=== PATIENT | male | born 1980 | race Caucasian/White ===

== ENCOUNTER 2018-10-19 12:33 | Inpatient (IN) | payer SELFPAY ==
[2018-10-19] VITALS (11 sets, daily range): BP systolic 110–166; BP diastolic 57–82; PULSE 70–80; RESP 12–25; TEMP 35.6–37.1; O2SAT 94–99
--- NOTE | 2018-10-19 13:01 | W.ED.GENAD ---
Discharge Plan Disposition Patient Disposition: [facility] INPATIENT Condition: Stable Discharge Details Chief Complaint: Abd Prob Clinical Impression: Acute appendicitis, Acute hypokalemia, Abdominal pain, acute, right lower quadrant Primary Care Provider: Shahzad Zhou ED Provider: Ady Tan Home Meds and New Rx's Prescriptions: No Action atenolol 25 mg Tablet 25 mg PO DAILY RF: 0 Medical Decision Making This is a 38-year-old male with past medical history of hypertension and anxiety who presents for 11 days of diarrhea followed by 4 days of right lower quadrant abdominal pain. Signs and symptoms are concerning for appendicitis. Bedside ultrasound demonstrates evidence concerning for appendicitis. Patient was sent to CT scan results have been noted by the radiologist that there is an acute appendicitis. Laboratory workup does show mild white count of 11, potassium of 2.5 which is most likely secondary to his chronic diarrhea over the last 11 days. Bilirubin is minimally elevated at 1.1. Still pending urinalysis. Will contact surgeon for further surgical management. 1:[address] Olivarez, she agrees with the assessment and plan and does recommend surgery. Patient will be admitted to the floor pending appropriate surgical timing secondary to his oral intake at [address] Olivarez has requested that we start Zosyn, and has asked that I place bridging orders. These orders have been placed. I have extensively reviewed the treatment plan with the patient. I have addressed all patient concerns at this time. I have also discussed the plan with the admitting physician and they agree with the current assessment and plan and have agreed to assume responsibility for the patient. All parties demonstrate verbal understanding and agreement with our assessment and plan at this time. HPI General Date/Time Provider Initiated Documentation: 10/19/18 12:34. HPI Narrative: This is a 38-year-old male with past medical history of hypertension and anxiety who presents today for evaluation of abdominal pain in the right lower quadrant. Patient states that for the last 11 days he has had notable diarrhea, initially was watery for 6-day days, he did go and see his primary care provider who did recommend Imodium which has notably helped, however over the last 4 days he has had notable right lower quadrant pain which is gradually worsened in severity. His appetite is significantly decreased he has been eating very little. He did have a piece of toast this morning, but nothing else. He denies any vomiting but does admit to nausea. He denies any pain in his left lower quadrant, or in the epigastric regions. He denies any hematochezia, melena or acholic stool. He denies any recent antibiotics or foreign travel. He denies any previous abdominal surgeries. He has no other complaints or modifying factors at this time. Related Data Home Medications Medication Instructions Recorded Confirmed atenolol 25 mg PO DAILY 10/19/18 10/19/18 Allergies Allergy/AdvReac Type Severity Reaction Status Date / Time shellfish derived Allergy tingling Unverified 10/19/18 12:40 in mouth General Stated Complaint: Abd Prob BRADEN: 3 Review of Systems Review of Systems All systems reviewed & are unremarkable except as noted in HPI and below PFSH Medical History Anxiety (Chronic) Depression (Chronic) Social History Smoking/Tobacco Use Status: Never Alcohol Intake: never Substance use type: does not use Do you feel safe in your relationship?: Yes Exam Narrative Exam Narrative: 1.Const: Well-nourished, Well-developed, appearing stated age 2.Eyes: PERRL, no conjunctival injection, and symmetrical lids. 3.ENT: Atraumatic external nose and ears. Moist MM. Neck: Symmetric, trachea midline, No thyromegaly. 4.CVS: +S1/S2, No murmurs or gallops. Peripheral pulses 2+ and equal in all extremities. Brisk capillary refill in all extremities. 5.RESP: Unlabored respiratory effort. Clear to auscultation bilaterally. No wheezes rales or rhonchi 6.GI: Soft, tenderness in the right lower quadrant, pain is definitely notable at McBurney's point, negative Mckeon sign, no guarding or rebound in the epigastric region. No flank or CVA tenderness. No genital tenderness. Bedside limited portable ultrasound demonstrates a structure that appears like an inflamed appendix. 7.MSK: Normocephalic/Atraumatic, Extremities w/o deformity or ttp No cyanosis or clubbing, Normal movement of all extremities 8.Skin: Warm, Dry. No rashes or lesions. 9.Neuro: euclid operator II-XII grossly intact. Sensation grossly intact, no focal neurologic deficits. 10.Psych: (AAO) x3. Appropriate mood and affect Course Vital Signs Temperature 36.5 C 10/19/18 12:37 Pulse 71 10/19/18 12:37 Respiratory Rate 20 10/19/18 12:37 Blood Pressure 166/82 H 10/19/18 12:37 Pulse Oximetry 98 10/19/18 12:37 Temperature 36.5 C 10/19/18 12:37 Temperature Source Temporal Artery Scan 10/19/18 12:37 Pulse 71 10/19/18 12:37 Respiratory Rate 20 10/19/18 12:37 Respiratory Effort Non-Labored 10/19/18 12:37 Blood Pressure 166/82 H 10/19/18 12:37 Blood Pressure Position Sitting 10/19/18 12:37 Pulse Oximetry 98 10/19/18 12:37 Oxygen Delivery Method Room Air 10/19/18 12:37 Oxygen Flow Rate 0 10/19/18 12:37 Pain Level 7 10/19/18 12:41
[2018-10-19 13:06] LABS: Abs Immature Grans 0.03 k/cumm (0.0-0.09); Absolute Basophil Count 0.02 k/cumm (0.0-0.2); Absolute Eosinophil Count 0.03 k/cumm (0.0-0.7); Absolute Lymphocyte Count 1.77 k/cumm (1.2-3.4); Absolute Monocyte Count 0.96 k/cumm (0.11-0.7); Basophils % 0.2; Eosinophils % 0.3; HGB 16.4 g/dL (13.5-17.5); Immature Grans % 0.3; Lymphocytes % 15.7; Mean Corp. HGB Concentration 35.7 g/dL (32.0-36.0); Mean Corpuscular Hemoglobin 27.6 pg (27.0-33.0); Mean Corpuscular Volume 77.4 fL (80-95); Mean Platelet Volume 9.5 fL (8.0-11.0); Monocytes % 8.5; Platelet Count 288 x1000/uL (130-400); RBC 5.94 m/cumm (4.50-6.00); RBC Distribution Width 13.4 % (11.8-14.1); White Blood Cell Count 11.29 k/cumm (4.4-10.8)
[2018-10-19 13:16] LABS: Absolute Neutrophil Count 8.47 k/cumm (1.2-6.7)
[2018-10-19] MEDS: Normal Saline 1,000 ML 1000 ML IV (13:22)
[2018-10-19] MEDS: Omnipaque 350 MG/ML 100 ML BTL IJ (13:27)
[2018-10-19 13:28] LABS: ALT 33 U/L (12-78); AST 20 U/L (15-37); Albumin 4.3 g/dL (3.4-5.0); Alkaline Phosphatase 80 U/L (46-116); Anion Gap 11.5 mmol/L (3-11); BUN 8 mg/dL (7-18); Bilirubin, Total 1.1 mg/dL (0.2-1.0); CO2 26.5 mmol/L (21.0-32.0); CREATININE 1.08 mg/dL (0.70-1.30); Calcium 9.1 mg/dL (8.5-10.1); Chloride 101 mmol/L (98-107); Glucose 113 mg/dL (70-100); Lipase 135 U/L (73-393); Sodium 139 mmol/L (136-145); Total Protein 8.7 g/dL (6.4-8.2)
[2018-10-19 13:30] LABS: Potassium 2.5 mmol/L (3.5-5.1)
--- NOTE | 2018-10-19 13:35 | DI.CT_ITS ---
SYMPTOMS/DIAGNOSIS: RLQ PAIN, DIARRHEA, ? APPENDICITIS CT SCAN OF THE ABDOMEN AND PELVIS: CT scan of the abdomen and pelvis was performed following the uneventful administration of intravenous contrast material. There are no priors for comparison. The appendix is distended measuring up to 1.3 cm. There is an appendicolith present. There is periappendiceal inflammatory change noted. The findings are consistent with an acute appendicitis. No abscess or free air is seen. The visualized lung bases are clear. The liver, spleen, pancreas, gallbladder, bile ducts, adrenal glands, kidneys, ureters and bladder are unremarkable. The reproductive organs are unremarkable. The aorta is of normal caliber. No significant abdominal or pelvic adenopathy or pneumoperitoneum is present. Degenerative changes are seen in the spine. IMPRESSION: Findings consistent with an acute appendicitis with appendicolith. No evidence of abscess or free air. The findings were discussed with Dr. Tan of the emergency department on the date of the examination.
[2018-10-19] MEDS: POTASSIUM CHLORIDE 20 MEQ/100 ML BAG 50 MEQ IVPB (13:45)
[2018-10-19 13:48] LABS: Bilirubin Negative (Negative); Blood Trace-lysed (Negative); Clarity Clear; Glucose Negative (Negative); Ketones Negative (Negative); Leukocyte Esterase Negative (Negative); Nitrite Negative (Negative); Specific Gravity <= 1.005 (1.005-1.025); Urobilinogen 0.2 EU/dL (Up TO 0.2); pH 6.5 (5-8)
[2018-10-19] MEDS: PIPERACILLIN/TAZO 3.375 GM in Normal Saline 50 ML IVPB (14:11)
[2018-10-19 14:19] LABS: Magnesium 1.9 mg/dL (1.8-2.4)
[2018-10-19 14:28] LABS: Bacteria Rare HPF (Negative); C & S Indicated? No; Casts 0-2 Coarse Granular LPF (Negative); Crystals Negative HPF (Negative); Epithelial Cells Negative HPF (Negative); Mucus Negative (Negative); RBC 0-2 (0-2); WBC 0-2 HPF (0-5)
--- NOTE | 2018-10-19 15:41 | HPE_ITS ---
Date of service: 10/19/18 Time of Service: 15:40 Assessment and Plan (1) Acute appendicitis: Current visit: Yes Status: Acute lap appy malig htn risks of anethesia being addressed risk of surgery: bleeding/infection/penumonia/blood clots damage to bowel/blood vessels/bladder risk of perforation/post op sbcess/suture line failure. post Op will be admitted started on zosyn History of Present Illness Chief Complaint: RLQ pain Consults Consult date: 10/19/18 Narrative: pt has had abdom pain since . assoc nausea. He has had diarrhea since he was started on zoloft for panic attacks. He stopped this on started. diarrhea not resolved but better. He has lost wt. he was having up to 6 stools a day. Otherwise has not had a hx of GI problems. Does have HTN and was started on atenolol. Was recently dg w/ panic attacks and had full cardiac workup prior to that. no appetite. +family Hx. of mailg. HTN also fam hx of polycthemia. Review of Systems Review of Systems All systems reviewed & are unremarkable except as noted in HPI and below Constitutional Reports as per HPI, Reports system reviewed and no additional complaints, except as docu, Denies anorexia, Denies chills, Denies difficulty sleeping, Denies fatigue, Denies headache(s), Denies lethargy, Denies malaise, Denies poor appetite, Denies weakness, Denies weight gain and Denies weight loss Eyes Reports as per HPI, Reports system reviewed and no additional complaints, except as docu and Denies change in vision ENT Reports system reviewed and no additional complaints, except as docu, Reports as per HPI, Denies change in voice, Denies dental pain, Denies dysphagia, Denies dizziness, Denies facial pain, Denies headache(s) and Denies odynophagia Cardiovascular Reports as per HPI, Reports system reviewed and no additional complaints, except as docu, Denies chest pain, Denies chest pain with activity, Denies syncope, Denies leg edema and Denies dyspnea Respiratory Reports as per HPI, Reports system reviewed and no additional complaints, except as docu, Denies chest congestion, Denies cough, Denies pain with cough and Denies dyspnea Gastrointestinal Reports as per HPI, Reports system reviewed and no additional complaints, except as docu, Reports abdominal pain, Reports bloating, Denies change in bowel habi ts, Denies change in stool character, Denies constipation, Denies cramping, Denies dysphagia, Reports early satiety, Denies heartburn, Reports diarrhea, Reports nausea, Denies odynophagia and Reports vomiting Comments: diarrhea for last month- most likely due to zoloft and did stop this. Genitourinary Reports system reviewed and no additional complaints, except as docu Musculoskeletal Reports system reviewed and no additional complaints, except as docu, Reports as per HPI, Denies abnormal gait, Denies arthralgias and Denies muscle weakness Integumentary/Breasts Reports system reviewed and no additional complaints, except as docu, Reports as per HPI, Denies changing lesions, Denies new lesions and Denies jaundice Neurologic Reports system reviewed and no additional complaints, except as docu, Reports as per HPI, Denies abnormal speech, Denies abnormal gait, Denies dizziness, Denies syncope, Denies headache(s), Denies memory loss and Denies weakness Psychiatric Reports system reviewed and no additional complaints, except as docu, Reports as per HPI, Denies change in appetite and Denies memory loss Endocrine Denies fatigue, Denies polydipsia and Denies polyuria Hematologic/Lymphatic Reports system reviewed and no additional complaints, except as docu, Denies easy bleeding and Denies easy bruising Allergic/Immunologic Denies system reviewed and no additional complaints, except as docu, Reports as per HPI and Denies urticaria PFSH Medical History Anxiety (Chronic) Depression (Chronic) Social History Smoking/Tobacco Use Status: Never Alcohol Intake: never Substance use type: does not use Do you feel safe in your relationship?: Yes Meds Home Medications Medication Instructions Recorded Confirmed Type atenolol 25 mg PO DAILY 10/19/18 10/19/18 History Allergies Allergy/AdvReac Type Severity Reaction Status Date / Time shellfish derived Allergy tingling Unverified 10/19/18 12:40 in mouth Exam Narrative Exam Narrative: very anxious Const General: cooperative, healthy appearing, comfortable, no acute distress, well developed and well groomed Nutritional Appearance: average body habitus and well nourished Orientation: alert, awake and oriented x3 [facility] Head: normal to inspection, normocephalic and atraumatic Ears: hearing grossly normal bilaterally and external ears normal General nose exam: external nose normal Face and sinus: normal facial exam and sinuses nontender Mouth: oral mucosae normal, lip normal, tongue normal and moist mucous membranes Teeth and gingiva: dentition normal Eyes General: appearance normal, both eyes and all related structures Conjunctivae: conjunctivae normal Sclera: sclerae normal Pupils: PERRL Neck Neck: normal visual inspection and full ROM Chest Chest: normal inspection of the chest Resp Effort & Inspection: normal respiratory effort, able to speak in complete sentences, no cough, no nasal flaring, not tachypneic and no use of accessory muscles Auscultation: clear to auscultation bilaterally, no rales, no rhonchi and no wheezes Cardio Jugular venous pressure: no JVD Rate: regular rate Rhythm: regular rhythm GI Inspection: normal to inspection, no edema and non-distended Palpation: soft, no masses, nontender and No ascites Auscultation: normal bowel sounds Other: localized rebound and guarding. no hernias. no diffuse peritonitis. Skin General skin exam: no rashes or lesions noted Trauma: no lacerations or abrasions Neuro General: alert, oriented x3, oriented, gait normal, moves all extremities, no focal motor deficits and CN's II-XI intact bilaterally Cognition: normal cognition Speech: speech normal Gait: normal gait Motor: muscle tone normal throughout Extrem General: normal to inspection, full ROM and no clubbing, cyanosis or edema Psych Appearance: grossly normal and well kempt Mental Status: mental status grossly normal Speech and Movement: speech and movement normal Affect: normal affect Results Labs : 10/19/18 12:58 10/19/18 12:58 Laboratory Results - last 24 hr 10/19/18 10/19/18 10/19/18 12:58 12:58 12:58 WBC 11.29 H RBC 5.94 Hgb 16.4 Hct 46.0 MCV 77.4 L MCH 27.6 MCHC 35.7 RDW 13.4 Plt Count 288 MPV 9.5 Immature Gran % 0.3 Neutrophils % 75.0 Lymphocytes % 15.7 Monocytes % 8.5 Eosinophils % 0.3 Basophils % 0.2 Absolute Neutrophils 8.47 H Absolute Lymphocytes 1.77 Absolute Monocytes 0.96 H Absolute Eosinophils 0.03 Absolute Basophils 0.02 Sodium 139 Potassium 2.5 L* Chloride 101 Carbon Dioxide 26.5 Anion Gap 11.5 H BUN 8 Creatinine 1.08 Estimated GFR/1.73 m2 >= 60.00 Glucose 113 H Calcium 9.1 Magnesium 1.9 Total Bilirubin 1.1 H AST 20 ALT 33 Alkaline Phosphatase 80 Total Protein 8.7 H Albumin 4.3 Lipase 135 Urine Color Urine Clarity Urine pH Ur Specific [place] Urine Protein Urine Ketones Urine Blood Urine Nitrite Urine Bilirubin Urine Urobilinogen Ur Leukocyte Esterase Urine RBC Urine WBC Ur Epithelial Cells Urine Crystals Urine Bacteria Urine Casts Urine Mucus Ur Culture Indicated? Urine Glucose 10/19/18 13:34 WBC RBC Hgb Hct MCV MCH MCHC RDW Plt Count MPV Immature Gran % Neutrophils % Lymphocytes % Monocytes % Eosinophils % Basophils % Absolute Neutrophils Absolute Lymphocytes Absolute Monocytes Absolute Eosinophils Absolute Basophils Sodium Potassium Chloride Carbon Dioxide Anion Gap BUN Creatinine Estimated GFR/1.73 m2 Glucose Calcium Magnesium Total Bilirubin AST ALT Alkaline Phosphatase Total Protein Albumin Lipase Urine Color Yellow Urine Clarity Clear Urine pH 6.5 Ur Specific [place] <= 1.005 Urine Protein Negative Urine Ketones Negative Urine Blood Trace-lysed H Urine Nitrite Negative Urine Bilirubin Negative Urine Urobilinogen 0.2 Ur Leukocyte Esterase Negative Urine RBC 0-2 Urine WBC 0-2 Ur Epithelial Cells Negative Urine Crystals Negative Urine Bacteria Rare Urine Casts 0-2 coarse granular Urine Mucus Negative Ur Culture Indicated? No Urine Glucose Negative Last Vital Signs Temp 37.1 C 10/19/18 14:45 Pulse 77 10/19/18 14:45 Resp 16 10/19/18 14:45 BP 138/78 10/19/18 14:45 Pulse Ox 97 10/19/18 14:45
[2018-10-19] MEDS: ELECTROLYTE-R SOLUTION 1,000 ML 30 ML IV (16:03)
[2018-10-19] MEDS: Bupivacaine 0.25% Pres-Free 30 ML VIAL (16:34)
--- NOTE | 2018-10-19 17:05 | APP_PTH ---
PATIENT: Ross Gray LOC: [id number] AGE/SX: 38/M ROOM: [id number] RE10/19/[address]: Jaz Gallagher : 1980 BED: A DIS: 10/20/2018 SPEC #: [id number] RECD: 10/22/18 12:53 STATUS: CORTEZ REQ #: [id number] SHELLIE: 10/19/18 17:[address]: Jaz Gallagher DEPT: Surgical Specimen RECD BY: Steph Betancourt ENTERED: 10/22/18 12:54 SP TYPE: Appendix OTHR DR: Shahzad Zhou Tissues: 1 - APPENDIX NOT INCIDENTAL Procedures: GROSS AND MICRO LEVEL 3 Comments: [id number]
--- NOTE | 2018-10-19 17:19 | W.PM.OP ---
Date of service: 10/19/18 Time of Service: 17:19 Operative Note DATE OF PROCEDURE: 10/19/18 PRE-OP DIAGNOSIS: acute appendicitis POST-OP DIAGNOSIS: same PROCEDURE: laprascopic appendectomy SURGEON: Jaz Arroyo [employer]: Jaz Frey ANESTHESIA: GETA ESTIMATED BLOOD LOSS: 10 PATHOLOGY: other TOURNIQUET TIME: 0 COMPLICATIONS: None Patient was transported to: PACU Patient's condition: stable Implants: n/a Indications: see H & P Findings: see Op report Procedure Description: PRE OP DIAGNOSIS: Acute Appendicitis POST OP DIAGNOSIS: same retrocecal PROCEDURE: Laparoscopic appendectomy. SURGEON: Jaz Arroyo, ANESTHESIA: General. ESTIMATED BLOOD LOSS: 10 mL. COMPLICATIONS: The patient tolerated the procedure well without complications. INDICATIONS: The patient has signs and symptoms compatible with acute appendicitis and is brought to the OR for laparoscopic appendectomy, possible open procedure. Informed consent is obtained for the procedural (explained in simple layman's terms that the pt and/or family could understand) explaining risks vs benefits and alternatives to the procedure and consequences if we do not do the procedure. Risks include but are not limited to:bleeding,infections, pneumonia, blood clots/DVT/PE, anesthesia(aspiration, damage to teeth/airway/DE/CVA//prolonged mechanical ventilation/PTX/IV infections), damage to bowel, bladder,blood vessels, ureters. Damage to solid organs requiring removal. Infertility. Leakage from anastomosis requiring colostomy. Wound infections requiring further surgery. Scarring and disfigurement. Subsequent bowel obstructions from scar tissue. Possible open procedure if minimally invasive procedure is being attempted. Abscess and stump appendicitis as well as others. DESCRIPTION OF PROCEDURE: The patient was brought to the operating room suite and placed in supine position. Anesthesia was administered per the Department of Anesthesia. A Pearl catheter and OG tube are placed. The patient was prepped and draped in the usual sterile fashion using ChloraPrep scrub solution. Pause for the cause was done. 30 mL of 1% buffered was used for local anesthetization. A stab incision was made in the umbilicus and the Veress was inserted. Drop test was positive and insufflation was begun. When 15 mm of pressure was noted on the monitor, the Veress was removed, a #5 port inserted. Camera inserted through the port shows no damage to underlying structures. Bowel, liver and stomach that are visualized are normal in appearance. The appendix is very inflamed, erythematous,enlarged, & distened, but does not appear to have been ruptured. There is no purulent drainage in the pelvis. It is adhered to the anterior abdominal wall- but very superficially and easily peels off. A 12 mm port was then placed in the suprapubic position under direct visualization following creation of a local field block as well as a second 5 mm port in the LLQ. The appendix is retrocecal and the white line of Toldt is opened up. The appendix is elevated and a rent dissected into the mesentery. The base of the appendix is healthy and will hold danis. A Endo-DEVIN stapler is placed across the base of the appendix and fired and 2nd stapler placed across the mesentery and fired. The appendix is placed in a bag and brought out. There is no bleeding or enteric leakage from the staple lines. The pt does not require a drain. The abdomen was copiously irrigated with a liter of saline. All saline is evacuated. The scope and ports are removed. Pneumoperitoneum is evacuated. The fascia under the 12 mm port is closed with 0 Vicryl. There was no bleeding from the port sites as when they removed and the pneumoperitoneum evacuated. The wounds were copiously irrigated and closed in 2 layers with 4-0 Monocryl. Sterile tape and sterile dressings are applied. The patient tolerated the procedure without complication, transferred to the recovery room in stable condition. Family was apprised of patient condition. The patient can be discharged home later today. JAZ ARROYO, DO
--- NOTE | 2018-10-19 19:16 | PGE_ITS ---
Date of Service Date of service: 10/19/18 Time of Service: 19:15 Assessment and Plan (1) Acute appendicitis: Current visit: No Status: Acute cont post op care no problems from anethesia Subjective Patient reports: no new complaints Interval history since last seen: Pt is doing well. no headaches. No CP or SOB. no productive cough. no dysuria. no leg pain or swelling. no n/v. pain is controlled. d/w pt findings during surgery no problems from anethesia Exam Const General: cooperative, healthy appearing, comfortable, no acute distress, well developed and well groomed Nutritional Appearance: average body habitus and well nourished Orientation: alert, awake and oriented x3 HENMT Head: normal to inspection, normocephalic and atraumatic Ears: hearing grossly normal bilaterally and external ears normal General nose exam: external nose normal Face and sinus: normal facial exam and sinuses nontender Mouth: oral mucosae normal, lip normal, tongue normal and moist mucous membranes Teeth and gingiva: dentition normal Eyes General: appearance normal, both eyes and all related structures Conjunctivae: conjunctivae normal Sclera: sclerae normal Pupils: PERRL Neck Neck: normal visual inspection and full ROM Chest Chest: normal inspection of the chest Resp Effort & Inspection: normal respiratory effort, able to speak in complete sentences, no cough, no nasal flaring, not tachypneic and no use of accessory muscles Auscultation: clear to auscultation bilaterally, no rales, no rhonchi and no wheezes Cardio Jugular venous pressure: no JVD Rate: regular rate Rhythm: regular rhythm GI Inspection: normal to inspection, no edema and non-distended Palpation: soft, no masses, nontender and No ascites Auscultation: normal bowel sounds Other: dressing c/d/i. appropriate postOp pain Skin General skin exam: no rashes or lesions noted Trauma: no lacerations or abrasions Neuro General: alert, oriented x3, oriented, gait normal, moves all extremities, no focal motor deficits and CN's II-XI intact bilaterally Cognition: normal cognition Speech: speech normal Gait: normal gait Motor: muscle tone normal throughout Extrem General: normal to inspection, full ROM and no clubbing, cyanosis or edema Psych Appearance: grossly normal and well kempt Mental Status: mental status grossly normal Speech and Movement: speech and movement normal Affect: normal affect Objective Objective Clinical Data: Abnormal lab results 10/19/18 10/19/18 10/19/18 Range/Units 12:58 12:58 13:34 WBC 11.29 H (4.4-10.8) k/cumm MCV 77.4 L (80-95) fL Absolute Neutrophils 8.47 H (1.2-6.7) k/cumm Absolute Monocytes 0.96 H (0.11-0.7) k/cumm Potassium 2.5 L* (3.5-5.1) mmol/L Anion Gap 11.5 H (3-11) mmol/L Glucose 113 H (70-100) mg/dL Total Bilirubin 1.1 H (0.2-1.0) mg/dL Total Protein 8.7 H (6.4-8.2) g/dL Urine Blood Trace-lysed H (Negative) Vital Signs Temperature 36.6 C 10/19/18 18:06 Temperature Source Tympanic 10/19/18 14:45 Pulse 72 10/19/18 18:06 Pulse Rhythm Regular 10/19/18 14:45 Respiratory Rate 15 10/19/18 18:06 Respiratory Effort Non-Labored 10/19/18 14:45 Blood Pressure 117/57 L 10/19/18 18:06 Blood Pressure Position Sitting 10/19/18 12:37 Pulse Oximetry 94 L 10/19/18 18:06 Respiratory End-tidal CO2 34 10/19/18 18:06 Oxygen Delivery Method Room Air 10/19/18 18:06 Oxygen Flow Rate 1 10/19/18 18:06 Pain Level 0 10/19/18 18:06 Intake & Output 10/18/18 10/19/18 10/19/18 23:59 11:59 23:59 Intake Total 450 / 450 Output Total 100 / 100 Balance 350 / 350 Weight 92.4 kg Intake: IV 450 / 450 Output: Urine 100 / 100 Other: Urine Color Yellow Urine Appearance Clear Comment voided upon admission to unit. Emesis Description None Laboratory Results WBC 11.29 k/cumm (4.4-10.8) H 10/19/18 12:58 RBC 5.94 m/cumm (4.50-6.00) 10/19/18 12:58 Hgb 16.4 g/dL (13.5-17.5) 10/19/18 12:58 Hct 46.0 % (40.0-50.0) 10/19/18 12:58 MCV 77.4 fL (80-95) L 10/19/18 12:58 MCH 27.6 pg (27.0-33.0) 10/19/18 12:58 MCHC 35.7 g/dL (32.0-36.0) 10/19/18 12:58 RDW 13.4 % (11.8-14.1) 10/19/18 12:58 Plt Count 288 x1000/uL (130-400) 10/19/18 12:58 MPV 9.5 fL (8.0-11.0) 10/19/18 12:58 Immature Gran % 0.3 10/19/18 12:58 Neutrophils % 75.0 10/19/18 12:58 Lymphocytes % 15.7 10/19/18 12:58 Monocytes % 8.5 10/19/18 12:58 Eosinophils % 0.3 10/19/18 12:58 Basophils % 0.2 10/19/18 12:58 Absolute Neutrophils 8.47 k/cumm (1.2-6.7) H 10/19/18 12:58 Absolute Lymphocytes 1.77 k/cumm (1.2-3.4) 10/19/18 12:58 Absolute Monocytes 0.96 k/cumm (0.11-0.7) H 10/19/18 12:58 Absolute Eosinophils 0.03 k/cumm (0.0-0.7) 10/19/18 12:58 Absolute Basophils 0.02 k/cumm (0.0-0.2) 10/19/18 12:58 Sodium 139 mmol/L (136-145) 10/19/18 12:58 Potassium 2.5 mmol/L (3.5-5.1) L* 10/19/18 12:58 Chloride 101 mmol/L (98-107) 10/19/18 12:58 Carbon Dioxide 26.5 mmol/L (21.0-32.0) 10/19/18 12:58 Anion Gap 11.5 mmol/L (3-11) H 10/19/18 12:58 BUN 8 mg/dL (7-18) 10/19/18 12:58 Creatinine 1.08 mg/dL (0.70-1.30) 10/19/18 12:58 Estimated GFR/1.73 m2 >= 60.00 (mL/min/1.73m2) 10/19/18 12:58 Glucose 113 mg/dL (70-100) H 10/19/18 12:58 Calcium 9.1 mg/dL (8.5-10.1) 10/19/18 12:58 Magnesium 1.9 mg/dL (1.8-2.4) 10/19/18 12:58 Total Bilirubin 1.1 mg/dL (0.2-1.0) H 10/19/18 12:58 AST 20 U/L (15-37) 10/19/18 12:58 ALT 33 U/L (12-78) 10/19/18 12:58 Alkaline Phosphatase 80 U/L (46-116) 10/19/18 12:58 Total Protein 8.7 g/dL (6.4-8.2) H 10/19/18 12:58 Albumin 4.3 g/dL (3.4-5.0) 10/19/18 12:58 Lipase 135 U/L (73-393) 10/19/18 12:58 Urine Color Yellow (Yellow) 10/19/18 13:34 Urine Clarity Clear 10/19/18 13:34 Urine pH 6.5 (5-8) 10/19/18 13:34 Ur Specific [place] <= 1.005 (1.005-1.025) 10/19/18 13:34 Urine Protein Negative mg/dL (Negative) 10/19/18 13:34 Urine Ketones Negative mg/dL (Negative) 10/19/18 13:34 Urine Blood Trace-lysed (Negative) H 10/19/18 13:34 Urine Nitrite Negative (Negative) 10/19/18 13:34 Urine Bilirubin Negative (Negative) 10/19/18 13:34 Urine Urobilinogen 0.2 EU/dL (Up TO 0.2) 10/19/18 13:34 Ur Leukocyte Esterase Negative (Negative) 10/19/18 13:34 Urine RBC 0-2 (0-2) 10/19/18 13:34 Urine WBC 0-2 HPF (0-5) 10/19/18 13:34 Ur Epithelial Cells Negative HPF (Negative) 10/19/18 13:34 Urine Crystals Negative HPF (Negative) 10/19/18 13:34 Urine Bacteria Rare HPF (Negative) 10/19/18 13:34 Urine Casts 0-2 coarse granular LPF (Negative) 10/19/18 13:34 Urine Mucus Negative (Negative) 10/19/18 13:34 Ur Culture Indicated? No 10/19/18 13:34 Urine Glucose Negative mg/dL (Negative) 10/19/18 13:34
[2018-10-19] MEDS: Lactated Ringers 1,000 ML 125 ML IV (19:23)
[2018-10-19] MEDS: HYDROcodone 5/Acetaminophen 325 TAB PO (19:23)
[2018-10-19 19:26] LABS: Anion Gap 3.9 mmol/L (3-11); BUN 7 mg/dL (7-18); CO2 29.1 mmol/L (21.0-32.0); Calcium 8.3 mg/dL (8.5-10.1); Chloride 104 mmol/L (98-107); Glucose 132 mg/dL (70-100); Potassium 3.4 mmol/L (3.5-5.1); Sodium 137 mmol/L (136-145)
[2018-10-19] MEDS: Normal Saline 500 ML 110 ML IV (22:10)
[2018-10-19] MEDS: Ketorolac 30 MG/ML VIAL IVP (22:10)
[2018-10-19] MEDS: POTASSIUM CHLORIDE 10 MEQ/100 ML BAG 100 MEQ IVPB (22:12)
[2018-10-19] MEDS: Normal Saline Flush 10 ML SYR IVP ×2 (22:12→22:33)
[2018-10-20 00:42] VITALS: BP 119/69; PULSE 70; RESP 16; TEMP 35.7; O2SAT 95
[2018-10-20] MEDS: Ketorolac 30 MG/ML VIAL IVP ×2 (03:37→09:45)
[2018-10-20] MEDS: Normal Saline Flush 10 ML SYR IVP (03:39)
[2018-10-20] MEDS: Lactated Ringers 1,000 ML 125 ML IV (03:46)
[2018-10-20 07:26] LABS: Anion Gap 5.2 mmol/L (3-11); BUN 5 mg/dL (7-18); CO2 27.8 mmol/L (21.0-32.0); CREATININE 0.84 mg/dL (0.70-1.30); Calcium 8.5 mg/dL (8.5-10.1); Chloride 105 mmol/L (98-107); Glucose 113 mg/dL (70-100); Magnesium 2.2 mg/dL (1.8-2.4); Potassium 3.7 mmol/L (3.5-5.1); Sodium 138 mmol/L (136-145)
[2018-10-20 07:35] VITALS: BP 116/72; PULSE 68; RESP 16; TEMP 36; O2SAT 100
[2018-10-20] MEDS: Atenolol 25 MG TAB PO (09:45)
--- NOTE | 2018-10-20 11:43 | W.PM.DS.N ---
Date of service: 10/20/18 Time of Service: 11:43 DS: Diagnosis Discharge Diagnosis (1) Acute appendicitis: Status: Acute Discharge Plan Disposition Patient Disposition: HOME Condition: Stable Discharge Details Reason For Visit: ACUTE APPENDICITIS Admit Date/Time: 10/19/18 13:42 Admit Provider: Jaz Gallagher Attending Provider: Jaz Gallagher Primary Care Provider: Shahzad Zhou Hospital Course Hospital Course: unremarkable. no problems with anesthesia or recovery Home Meds and New Rx's Prescriptions: New ibuprofen 800 mg tablet 800 mg PO TID PRN (Reason: pain) Qty: 60 RF: 3 hydrocodone-acetaminophen [[place]] 5-325 mg tablet 1 tab PO Q4H PRN (Reason: pain) Qty: 14 RF: 0 Continued atenolol 25 mg Tablet 25 mg PO DAILY RF: 0 Discharge Instructions Instructions: Appendicitis (DC) Additional Instructions: Keep an ice bag on the incision. 20 minutes on and 20 minutes off. Ice keeps the swelling down and swelling causes pain. Make sure you wrap the ice pack in a towel and don't apply directly to the skin. -for the first 72hrs take ibuprofen 800mg every 8hrs scheduled. For the first 72hrs, take [place] prn pain. after 72 hrs, should require narcotics minimally. After 72 hrs tale ibuprofen prn for pain -No driving x1 week or of you are taking pain medications. -Do Not remove any steri tapes (white tapes) that cover the incision. -Follow-up with Dr. Stephens in 1 week. -regular diet -no straining to move bowels -pain meds are very constipating: if you do not move your bowels daily take a dose of OTC milk of magnesia -It is ok to shower. No bathe, soaking, swimming or hot tubs -Keep wound clean and dry. Wash incision with soap and water daily. Pat dry, don't rub. -If you do not have steri-tapes on your incision, than keep the wound covered with a gauze and antibacterial ointment. - You may find that your appetite is smaller. Eat 3-6 small meals throughout the day. It is important to drink lots of water after surgery, 6-10 glasses a day. -If you were given an incentive spirometry (\breathing flocculator operator\[id number]), continue to do this 10x/hour while awake. -We do want you up walking, at least 5-6 times per day. This is very important to prevent pneumonia and blood clots. You can climb stairs, take them slowly. -No lifting over 5 pounds. This is very important to avoid developing a hernia in your incision. -You may find that you are very tired after surgery- this is normal. -please do not smoke for a minimum of 72 hours after surgery. Stand Alone Forms: Nursing Discharge Form Referrals: Mayela Marques MD [ [facility] STAFF PHYSICIAN] - Activity:: no lifting over 10#'s x 2 wks. no driving for 72 hrs or if taking narcotics Equipment/Supplies:: No Equipment Needed Diet:: As Tolerated Discharge Orders Discharge Orders: Discharge Order (Routine); Ordered 10/20/18 Ordered By: Jaz Gallagher Discharge Data Discharge Date/Time-TO BE ENTERED AT DEPARTURE: 10/20/18 13:37 Exam Const General: cooperative, healthy appearing, comfortable, no acute distress, well developed and well groomed Nutritional Appearance: average body habitus and well nourished Orientation: alert, awake and oriented x3 HENMT Head: normal to inspection, normocephalic and atraumatic Ears: hearing grossly normal bilaterally and external ears normal General nose exam: external nose normal Face and sinus: normal facial exam and sinuses nontender Mouth: oral mucosae normal, lip normal, tongue normal and moist mucous membranes Teeth and gingiva: dentition normal Eyes General: appearance normal, both eyes and all related structures Conjunctivae: conjunctivae normal Sclera: sclerae normal Pupils: PERRL Neck Neck: normal visual inspection and full ROM Chest Chest: normal inspection of the chest Resp Effort & Inspection: normal respiratory effort, able to speak in complete sentences, no cough, no nasal flaring, not tachypneic and no use of accessory muscles Auscultation: clear to auscultation bilaterally, no rales, no rhonchi and no wheezes Cardio Jugular venous pressure: no JVD Rate: regular rate Rhythm: regular rhythm GI Inspection: normal to inspection, no edema and non-distended Palpation: soft, no masses, nontender and No ascites Auscultation: normal bowel sounds Other: incision c/d/i. + bruising around umbilical incisions Skin General skin exam: no rashes or lesions noted Trauma: no lacerations or abrasions Neuro General: alert, oriented x3, oriented, gait normal, moves all extremities, no focal motor deficits and CN's II-XI intact bilaterally Cognition: normal cognition Speech: speech normal Gait: normal gait Motor: muscle tone normal throughout Extrem General: normal to inspection, full ROM and no clubbing, cyanosis or edema Psych Appearance: grossly normal and well kempt Mental Status: mental status grossly normal Speech and Movement: speech and movement normal Affect: normal affect DS: Data Vitals/I&O Vitals and I&O: Vital Signs Temperature 35.7 C L 10/20/18 00:42 Temperature Source Tympanic 10/20/18 00:42 Pulse 70 10/20/18 00:42 Pulse Rhythm Regular 10/20/18 05:06 Respiratory Rate 16 10/20/18 00:42 Respiratory Effort Non-Labored 10/20/18 05:06 Respiratory Depth Normal 10/20/18 05:06 Respiratory Pattern Normal 10/20/18 05:06 Blood Pressure 119/69 10/20/18 00:42 Blood Pressure Position Sitting 10/19/18 12:37 Pulse Oximetry 95 10/20/18 00:42 Respiratory End-tidal CO2 34 10/19/18 18:06 Oxygen Delivery Method Room Air 10/20/18 05:06 Oxygen Flow Rate 0 10/20/18 05:06 Pain Level 2 10/20/18 09:45 Intake & Output 10/19/18 10/19/18 10/20/18 11:59 23:59 11:59 Intake Total 2178.750 / 2178.750 803.75 / 803.75 Output Total 100 / 100 1100 / 1100 Balance 2078.750 / 2078.750 -296.25 / -296.25 Weight 92.4 kg 92.2 kg Intake: IV 1658.750 / 1658.750 563.75 / 563.75 Oral 520 / 520 240 / 240 Output: Urine 100 / 100 1100 / 1100 Other: Urine Color Light Lanie Yellow Urine Appearance Clear Clear Urine Odor None None Comment voided upon admission to unit. Voiding ad rizwana Emesis Description None Voiding Methods Toilet Toilet Labs on day of discharge: Labs from last 24 hours 10/20/18 10/19/18 10/19/18 07:00 Unknown 19:15 WBC RBC Hgb Hct MCV MCH MCHC RDW Plt Count MPV Immature Gran % Neutrophils % Lymphocytes % Monocytes % Eosinophils % Basophils % Absolute Neutrophils Absolute Lymphocytes Absolute Monocytes Absolute Eosinophils Absolute Basophils Sodium 138 137 Potassium 3.7 3.4 L Chloride 105 104 Carbon Dioxide 27.8 29.1 Anion Gap 5.2 3.9 BUN 5 L 7 Creatinine 0.84 1.00 Estimated GFR/1.73 m2 >= 60.00 >= 60.00 Glucose 113 H 132 H Calcium 8.5 8.3 L Magnesium 2.2 Total Bilirubin AST ALT Alkaline Phosphatase Total Protein Albumin Lipase Urine Color Urine Clarity Urine pH Ur Specific [place] Urine Protein Urine Ketones Urine Blood Urine Nitrite Urine Bilirubin Urine Urobilinogen Ur Leukocyte Esterase Urine RBC Urine WBC Ur Epithelial Cells Urine Crystals Urine Bacteria Urine Casts Urine Mucus Ur Culture Indicated? Urine Glucose Stool Campylobacter PCR Pending Stool Salmonella PCR Pending Stool Shigella PCR Pending Shiga Toxin (PCR) Pending 10/19/18 10/19/18 10/19/18 13:34 12:58 12:58 WBC 11.29 H RBC 5.94 Hgb 16.4 Hct 46.0 MCV 77.4 L MCH 27.6 MCHC 35.7 RDW 13.4 Plt Count 288 MPV 9.5 Immature Gran % 0.3 Neutrophils % 75.0 Lymphocytes % 15.7 Monocytes % 8.5 Eosinophils % 0.3 Basophils % 0.2 Absolute Neutrophils 8.47 H Absolute Lymphocytes 1.77 Absolute Monocytes 0.96 H Absolute Eosinophils 0.03 Absolute Basophils 0.02 Sodium Potassium Chloride Carbon Dioxide Anion Gap BUN Creatinine Estimated GFR/1.73 m2 Glucose Calcium Magnesium 1.9 Total Bilirubin AST ALT Alkaline Phosphatase Total Protein Albumin Lipase Urine Color Yellow Urine Clarity Clear Urine pH 6.5 Ur Specific [place] <= 1.005 Urine Protein Negative Urine Ketones Negative Urine Blood Trace-lysed H Urine Nitrite Negative Urine Bilirubin Negative Urine Urobilinogen 0.2 Ur Leukocyte Esterase Negative Urine RBC 0-2 Urine WBC 0-2 Ur Epithelial Cells Negative Urine Crystals Negative Urine Bacteria Rare Urine Casts 0-2 coarse granular Urine Mucus Negative Ur Culture Indicated? No Urine Glucose Negative Stool Campylobacter PCR Stool Salmonella PCR Stool Shigella PCR Shiga Toxin (PCR) 10/19/18 12:58 WBC RBC Hgb Hct MCV MCH MCHC RDW Plt Count MPV Immature Gran % Neutrophils % Lymphocytes % Monocytes % Eosinophils % Basophils % Absolute Neutrophils Absolute Lymphocytes Absolute Monocytes Absolute Eosinophils Absolute Basophils Sodium 139 Potassium 2.5 L* Chloride 101 Carbon Dioxide 26.5 Anion Gap 11.5 H BUN 8 Creatinine 1.08 Estimated GFR/1.73 m2 >= 60.00 Glucose 113 H Calcium 9.1 Magnesium Total Bilirubin 1.1 H AST 20 ALT 33 Alkaline Phosphatase 80 Total Protein 8.7 H Albumin 4.3 Lipase 135 Urine Color Urine Clarity Urine pH Ur Specific [place] Urine Protein Urine Ketones Urine Blood Urine Nitrite Urine Bilirubin Urine Urobilinogen Ur Leukocyte Esterase Urine RBC Urine WBC Ur Epithelial Cells Urine Crystals Urine Bacteria Urine Casts Urine Mucus Ur Culture Indicated? Urine Glucose Stool Campylobacter PCR Stool Salmonella PCR Stool Shigella PCR Shiga Toxin (PCR) PFSH Medical History Malignant hypertension (Acute) Anxiety (Chronic) Depression (Chronic) Social History Smoking/Tobacco Use Status: Never Alcohol Intake: never Substance use type: does not use Do you feel safe in your relationship?: Yes
== END 2018-10-20 13:37 | disposition home or self-care (01) | DRG 343 ==
LOC: ER 13:47 → MS 14:39
PROVIDERS: Admitting Provider Surgery; Emergency Provider Student in an Organized Health Care Education/Training Program; PCP Internal Medicine; Visit Provider Surgery
PROC: 0DTJ4ZZ Resection of Appendix, Percutaneous Endoscopic Approach (ICD-10-PCS; CPT 44970; principal; 2018-10-19 14:15)
DX: K35.80 Unspecified acute appendicitis (principal); I10 Essential (primary) hypertension; F41.8 Other specified anxiety disorders
CPT/HCPCS: 44970; 36415; 80048; 80053; 83690; 87505; 96361; 96365; 96368; 99222; 99238; 99285; NC; 74177; 81003; 81015; 83735; 85025; 88304; 99284; J1100; J1885; J2250; J2405; J2543; J3480; J3490

== ENCOUNTER 2023-12-06 05:10 | Outpatient (CLI) | payer BC, SELFPAY ==
[2023-12-06 09:06] LABS: Abs Immature Grans 0.02 10^3/uL (0.0-0.06); Absolute Basophil Count 0.03 10^3/uL (0.0-0.2); Absolute Eosinophil Count 0.11 10^3/uL (0.0-0.7); Absolute Lymphocyte Count 1.47 10^3/uL (1.2-3.4); Absolute Monocyte Count 0.58 10^3/uL (0.1-0.8); Absolute Neutrophil Count 5.23 10^3/uL (1.2-6.7); Basophils % 0.4 %; Eosinophils % 1.5 %; HCT 51.1 % (40.0-50.0); HGB 17.3 g/dL (13.5-17.5); Immature Grans % 0.3 %; Lymphocytes % 19.8 %; MCH 27.5 pg (27.0-33.0); MCHC 33.9 % (32.0-36.0); MCV 81 fL (80-95); Monocytes % 7.8 %; Neutrophils % 70.2 %; Platelet Count 248 10^3/uL (130-400); RBC 6.28 10^6/uL (4.36-5.78); RDW 12.6 % (11.8-14.1); RDW-SD 37.2 fL; WBC 7.44 10^3/uL (4.4-10.8)
[2023-12-06 09:24] LABS: Diff Comment RBC Morph Reviewed; RBC Morphology Normal
[2023-12-06 09:35] LABS: Hemoglobin A1C 5.3 % (<5.7)
[2023-12-06 09:46] LABS: Calculated LDL 177 mg/dL (<100); Cholesterol 251 mg/dL (<200); Ferritin 139 ng/mL (26-388); HDL Cholesterol 64 mg/dL (40-60); Triglyceride 53 mg/dL (<150)
[2023-12-06 09:58] LABS: C-Reactive Protein < 0.50 mg/dL (<or=0.5)
[2023-12-06 11:40] LABS: ALT 39 U/L (16-63); AST 33 U/L (15-37); Albumin 3.9 g/dL (3.4-5.0); Alkaline Phosphatase 75 U/L (46-116); Anion Gap 12.4 mmol/L (3-11); BUN 15 mg/dL (7-18); Bilirubin, Total 1.2 mg/dL (0.2-1.0); CO2 25.6 mmol/L (21.0-32.0); CREATININE 1.1 mg/dL (0.70-1.30); Calcium 8.9 mg/dL (8.5-10.1); Chloride 104 mmol/L (98-107); Estimated GFR 85.95 (mL/min/1.73m2); Glucose 88 mg/dL (74-106); Sodium 142 mmol/L (136-145); Total Protein 8.1 g/dL (6.4-8.2)
== END 2023-12-06 05:11 | disposition home or self-care (01) ==
LOC: LBO 05:11
PROVIDERS: PCP Nurse Practitioner Family; Visit Provider Surgery
DX: Z13.220 Encounter for screening for lipoid disorders (principal); Z13.1 Encounter for screening for diabetes mellitus; K62.5 Hemorrhage of anus and rectum
CPT/HCPCS: 36415; 80053; 80061; 82728; 83036; 85025; 86140

== ENCOUNTER 2023-12-15 09:51 | Day surgery (SDC) | payer BC, SELFPAY ==
[2023-12-15 10:14] VITALS: BP 134/84; PULSE 74; RESP 16; TEMP 36.5; O2SAT 96
[2023-12-15] MEDS: Lactated Ringers 1,000 ML 80 ML IV (10:21)
--- NOTE | 2023-12-15 10:30 | ANES.PREOP_ITS ---
General Info Date of Service Date Performed: 12/15/23 Height: 5 ft 9 in Weight: 95.8 kg Body Mass Index (BMI): 31.1 Surgical Procedure: Operation Date: 12/15/23 10:40 Proposed Procedure Side Surgeon p Colonoscopy Jaz Gallagher DO s Possible Hemorrhoid Banding Jaz Gallagher DO Meds Allergies and Home Medications Allergies Allergy/AdvReac Type Severity Reaction Status Date / Time shellfish derived Allergy tingling Unverified 12/15/23 09:59 in mouth Home Medication Medication Instructions Recorded lorazepam 1 mg tablet (Ativan) 1 mg PO DAILY PRN 10/25/23 Current Visit Medications: Current Medications Generic Name Dose Route Start Last Admin Trade Name Freq PRN Reason Stop Dose Admin Hyoscyamine Sulfate 0.125 mg 12/15/23 06:22 Hyoscyamine 0.125 Mg Sl/Oral/Chew SL 01/14/24 06:21 DIRECTED PRN Ringer's Solution 1,000 mls @ 0 mls/hr 12/15/23 06:00 12/15/23 10:21 IV 01/13/24 23:59 80 mls/hr INFUSION BRE Administration IV Miscellaneous Supplies 1 each 12/15/23 06:00 Iv Access IV 01/13/24 23:59 DIRECTED BRE Ondansetron HCl 4 mg 12/15/23 06:22 Ondansetron 4 Mg/2 Ml Vial IVP 01/14/24 06:21 Q4H PRN PRN Nausea / Vomiting Sodium Chloride 0 ml 12/15/23 06:00 Normal Saline Flush 10 Ml Syr IV 01/13/24 23:59 PRN PRN Sodium Chloride 0 ml 12/15/23 06:00 Normal Saline 10 Ml Vial IJ 01/13/24 23:59 DIRECTED PRN Sterile Water 0 ml 12/15/23 06:00 Water,Injection,Sterile 10 Ml Vial IJ 01/13/24 23:59 DIRECTED PRN PFSH Active Problems Active Problems: Problem Status Onset Code Rectal bleeding K62.5 Blood in stool K92.1 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 mg Tobacco Smoking/Tobacco Use Status: Never Alcohol Alcohol Intake: never Substance Use Substance use: Never Substance use type: does not use Vital Signs and Lab Results Vital Signs Most Recent Vital Signs in EMR: Most Recent Vital Signs Temp Pulse Resp BP Pulse Ox 36.5 C 74 16 134/84 96 12/15/23 10:14 12/15/23 10:14 12/15/23 10:14 12/15/23 10:14 12/15/23 10:14 Lab Results Blood Type / Crossmatch: No Data to Display Complete Blood Count: White Blood Count 7.44 10^3/uL (4.4-10.8) 12/06/23 08:52 Red Blood Count 6.28 10^6/uL (4.36-5.78) H 12/06/23 08:52 Hemoglobin 17.3 g/dL (13.5-17.5) 12/06/23 08:52 Hematocrit 51.1 % (40.0-50.0) H 12/06/23 08:52 Platelet Count 248 10^3/uL (130-400) 12/06/23 08:52 Complete Metabolic Panel: Sodium 142 mmol/L (136-145) 12/06/23 08:52 Potassium 4.0 mmol/L (3.5-5.1) 12/06/23 08:52 Chloride 104 mmol/L (98-107) 12/06/23 08:52 Carbon Dioxide 25.6 mmol/L (21.0-32.0) 12/06/23 08:52 BUN 15 mg/dL (7-18) 12/06/23 08:52 Creatinine 1.1 mg/dL (0.70-1.30) 12/06/23 08:52 Est GFR (CKD-EPI 2020) 85.95 (mL/min/1.73m2) 12/06/23 08:52 Calcium 8.9 mg/dL (8.5-10.1) 12/06/23 08:52 Albumin 3.9 g/dL (3.4-5.0) 12/06/23 08:52 Glucose 88 mg/dL (74-106) 12/06/23 08:52 Hemoglobin A1c 5.3 % (<5.7) 12/06/23 08:52 C-Reactive Protein < 0.50 mg/dL (<or=0.5) 12/06/23 08:52 Liver Function Panel: Alanine Aminotransferase (ALT/SGPT) 39 U/L (16-63) 12/06/23 08: 52 Aspartate Amino Transf (AST/SGOT) 33 U/L (15-37) 12/06/23 08:52 Coagulation Panel: No Data to Display Cardiac Panel: No Data to Display Arterial Blood Gas: No Data to Display Venous Blood Gas: No Data to Display Pancreas Panel: No Data to Display Thyroid Panel: No Data to Display Infectious Disease: No Data to Display Blood Cultures: No Data to Display Toxicology Panel: No Data to Display Anesthesia Assessment and Plan Anesthesia History Personal History: No History of Anesthesia Complications Family History: Malignant Hyperthermia Exercise Tolerance Exercise Tolerance: Metabolic Equivalents>4 Pertinent Negatives Pertinent Negatives: No Symptoms of GERD, No Major Cardiovascular Symptoms or Complaints, No Major Pulmonary Symptoms or Complaints and No History of CVA/TIA Cardiac & Pulmonary Exam Cardiac Exam: Normal S1/S2 Heart Sounds Pulmonary Exam: Clear Bilateral Breath Sounds Implantable Cardiac Device Does patient have a Pacemaker or an ICD?: No Airway Exam Known Difficult Airway: No Mallampati Class: 2 Mouth Opening: Normal (> 3cm) Thyromental Distance: Greater than 3 cm Neck Range of Motion: Full ROM Neck Circumference: Normal Teeth Condition: Normal Dentition ASA Classification ASA Score: ASA 2 Emergency Case?: No NPO Status NPO Status: NPO Clears >2 hours, Solids >8 hours Anesthesia Plan Resuscitation Status: Full Code Anesthesia Technique: General Anesthesia Airway Planned: Natural Airway Monitors Used: Standard Monitors Preoperative Comments:: 43 yo male, with hx panic disorder, has had recent rectal bleeding and here for first colonoscopy, family hx of malignant hyperthermia, patient has not personally been tested.
[2023-12-15 10:31] VITALS: BMI 31.1
--- NOTE | 2023-12-15 11:46 | BOWEL_PTH ---
PATIENT: Ross Gray LOC: [facility] U#:[id number] AGE/SX: 43/M ROOM: RE12/15/[address]: Jaz Gallagher : 1980 BED: DIS: 12/15/2023 SPEC #: [id number] RECD: 12/15/23 13:30 STATUS: CORTEZ REQ #: [id number] SHELLIE: 12/15/23 11:[address]: Jaz Gallagher DEPT: Surgical Specimen RECD BY: Steph Betancourt ENTERED: 12/15/23 13:31 SP TYPE: Bowel OTHR DR: Reji Henson, [employer] Tissues: 1 - BIOPSY BOWEL Procedures: GROSS AND MICRO LEVEL 4 Comments: [id number]
[2023-12-15 12:04] VITALS: BP 118/83; PULSE 70; RESP 16; TEMP 36.4; O2SAT 96
--- NOTE | 2023-12-15 12:11 | W.COLOREPORT ---
Date of service: 12/15/23 Time of Service: 12:21 Colonoscopy Report Date of procedure: 12/15/23 Pre-op diagnosis general: Rectal bleeding Post-op diagnosis procedure note: other (Polyp/diverticula/anal fissure) Surgeon: aJz Gallagher Anesthesia Type: General:No Airway Estimated blood loss (mL): 1 Pathology: other Complications: None Disposition: same day Prep: Miralax/Dulcolax Retraction Time: 19 Procedure Description: After informed consent was obtained the patient was taken to the procedure room and placed in a left decubitous position. Monitors were applied and a time out was done. The patients name, date of , procedure, allergies to medications and metal in their body was reviewed. The patient was then sedated. Once sedated and comfortable a rectal exam was done. External exam was normal. He does have an anal fissure at the 6 o'clock position was it which is about 50% healed. He does have a sentinel tag as well internal exam revealed a normal sphincter tone and no palpable masses. The prostate no palpable masses. There are no internal/external hemorrhoids The scope was then introduced and retrofelexed. No internal hemorrhoids were identified. The scope was then advanced to the cecum without difficulty. The TI and appendiceal orifice were identified. The scope was then slowly retracted over 19 minutes back into the rectum. Polyps were removed at 90cm- flat .5cm polyps removed with a cold biting forcep. All specimen is retrieved and no bleeding was noted. Has a few small scattered diverticula confined in the sigmoid colon. There is no signs of active bleeding or infection. Mucosa is pink and healthy with a normal vascular pattern.. The scope was removed and the patient was woken up and taken back to Same day surgery in stable condition. The patient tolerated the procedure well and there were no immediate complications. Follow up: The patient should follow up in 7 years, path pending, unless they develop changes in bowel habits or other new gastrointestinal complaints. [place] Bowel Prep [place] Bowel Prep Right Colon: 3 Left Colon: 3 Transverse Colon: 3 Total Score: 9
--- NOTE | 2023-12-15 12:14 | W.ANESPOSTOP ---
Postoperative Evaluation Date, Time and Location Date Performed: 12/15/23 Time Performed: 12:15 Patient Location: Day Surgery Unit Vital Signs Most Recent Imported Vital Signs: Most Recent Vital Signs Temp Pulse Resp BP Pulse Ox 36.4 C L 70 16 118/83 96 12/15/23 12:04 12/15/23 12:04 12/15/23 12:04 12/15/23 12:04 12/15/23 12:04 Pain Score Most Recent Pain Score: Most Recent Pain Score Pain Level 0 12/15/23 12:04 Assessment Mental Status: Awake (Alert & Oriented to Patient Baseline) Airway and Respiratory Function: Patent airway with normal (patient baseline) respiratory exam Cardiovascular Function: Hemodynamically Stable Hydration Status: Adequately Hydrated Nausea & Vomiting: No Nausea or Vomiting Pain: Pt. Denies Any Pain Peripheral Nerve Block: Patient did not receive a nerve block
--- NOTE | 2023-12-15 12:24 | PDOC.DSDIS_ITS ---
Date of service: 12/15/23 Time of Service: 12:24 Discharge Plan Disposition Patient Disposition: Home Condition: Good Discharge Details Reason For Visit: Colon scope Attending Provider: Jaz Gallagher Primary Care Provider: Reji Henson Home Meds and New Rx's Prescriptions: No Action lorazepam [Ativan] 1 mg tablet 1 mg PO DAILY PRN Discharge Instructions Additional Instructions: [facility] Colonoscopy Post- Op Instructions Instructions for Everyone who is given Anesthesia: For your safety, please do the following for the next twenty-four (24) hours: *Do Not operate a motor vehicle (car, truck, motorcycle, etc.) *Do Not drink alcoholic beverages or use any recreational drugs for the first 24 hours or while taking pain medications. The medications in your body may have a reaction that can be dangerous. *Do Not make any important decisions or sign any important papers. Findings: Colon polyps Diverticula-make sure you are moving your bowels on a regular basis and you are not straining to go to the bathroom. If you find you are having issues with straining or constipation, then it is recommended that you start a fiber supplement such as Anusol Anal fissure-as above Follow up: My office will send you a letter in 3 to 4 weeks time with the results of the pathology and when we want you to repeat the colonoscopy, most likely in 7 years time. 1. No lifting over 20 pounds or strenuous activity for the first 24 hours after your procedure. After 24 hours there are no restrictions on your activity but you may feel fatigued for a few days. 2. After you arrive home you may have a light meal and return to your normal diet as you can tolerate it without feeling sick to your stomach. 3. You may have a bloated, gaseous feeling in your belly (abdomen) after a colonoscopy. Passing gas and belching will help. Walking or lying down on your left side with your knees flexed may relieve the discomfort. Call the office at [phone] (Office) or [phone] (Hospital) right away if you notice any of the following: a.Vomiting of blood or ?coffee ground stools?. b.Rectal bleeding 1Tbsp, blood clots or continuous bleeding. c.Severe belly (abdominal) pain. d.A hard distended belly (abdomen) and an inability to pass gas. 4. Please don?t expect to have a normal BM (bowel movement) for 2-3 days after your procedure. 5. If there are questions regarding the findings of your procedure, please conta ct your doctor 6. If you are unable to contact your doctor with a problem, contact the hospital at [phone]. 7. Continue all your regular medications unless directed otherwise. I understand the above instructions and have no questions. Signature of Patient or Adult Escort Name of Responsible Adult Escort Signature of Nurse Date/Time Stand Alone Forms: Anesthesia Discharge Inst., Colonoscopy Post Instructions, Suresh Payne ([facility]) Activity:: See above Diet:: See above Discharge Orders Discharge Orders: Discharge Order (Routine); Ordered 12/15/23 Ordered By: Jaz Gallagher DS: Diagnosis Discharge Diagnosis (1) Adenomatous colon polyp: Status: Acute Asessment and Plan: The patient is seen and examined after their colonoscopy.? The patient has been able to pass gas.? They are not having abdominal pain.? They have been able to tolerate liquids and a snack.? They do not have any nausea or vomiting.? They are not having any chest pain or shortness of breath.??? They are not having any rectal bleeding. Their vital signs have been stable-see nursing notes. We discussed findings during their colonoscopy, and any biopsies that were done/polyps that were removed. The patient will be sent a letter with any biopsy results, and when to repeat the colonoscopy.-see discharge instructions. Patient was given explicit instructions to follow-up regarding colonoscopy-refer to discharge instructions.? We reviewed resumption of medications. Patient verbalized understanding and discharged in stable and satisfactory condition- See nursing notes. (2) Diverticula of colon: Status: Acute (3) Acute anal fissure: Status: Acute
[2023-12-15 12:34] VITALS: BP 121/92; PULSE 70; RESP 18; TEMP 36.4; O2SAT 98
== END 2023-12-15 12:49 | disposition home or self-care (01) ==
PROVIDERS: PCP Nurse Practitioner Family; Visit Provider Surgery
PROC: 0DJD8ZZ Inspection of Lower Intestinal Tract, Via Natural or Artificial Opening Endoscopic (ICD-10-PCS; CPT 45378; principal; 2023-12-15 10:30)
DX: K63.5 Polyp of colon (principal); K57.30 Diverticulosis of large intestine without perforation or abscess without bleeding; K60.0 Acute anal fissure; Z12.11 Encounter for screening for malignant neoplasm of colon
CPT/HCPCS: 45380; 88305; J2704

== ENCOUNTER 2024-10-30 12:14 | Outpatient (CLI) | payer BC, SELFPAY ==
[2024-10-30 11:31] LABS: Hemoglobin A1C 5.2 % (<5.7)
[2024-10-30 12:08] LABS: Calculated LDL 156 mg/dL (<100); Cholesterol 249 mg/dL (<200); HDL Cholesterol 81 mg/dL (>or=40); TSH (W/Ref FT4) 1.99 uIU/mL (0.36-3.74); Triglyceride 62 mg/dL (<150)
== END 2024-10-30 12:15 | disposition home or self-care (01) ==
LOC: LBO 12:14
PROVIDERS: PCP Nurse Practitioner Family; Visit Provider Nurse Practitioner Family
DX: Z13.1 Encounter for screening for diabetes mellitus (principal); E66.9 Obesity, unspecified; Z13.220 Encounter for screening for lipoid disorders; F41.0 Panic disorder [episodic paroxysmal anxiety]
CPT/HCPCS: 36415; 80061; 83036; 84443